=== PATIENT | female | born 1985 | race African-American/Black ===

== ENCOUNTER 2017-08-21 04:17 | Emergency (ER) | payer OTHER ==
[~2017-08-21] VITALS: Ht 170.2 cm; Wt 56.0 kg
[2017-08-21 04:21] VITALS: BP 125/67; PULSE 87; RESP 18; TEMP 99.1; O2SAT 100
[2017-08-21] MEDS ORDERED: BENZOCAINE-MENTHOL (SUGAR FREE) 15 MG-3.6 MG LOZENGE BUCCAL ONE (05:15)
[2017-08-21] MEDS ORDERED: predniSONE 20 MG TAB PO ONE (05:15)
--- NOTE | 2017-08-21 05:31 | PD ---
HPI . ENT complaint Chief Complaint: ENT Complaint Time Seen by Provider: 05:00 Travel History International Travel<30 days: No Contact w/Intl Traveler<30days: No Traveled to known affect area: No History of Present Illness HPI 32-year-old female complains of having sore throat, difficulty swallowing, generalized malaise aches and pains since yesterday. Patient denies any fever chills sweats, has no stridor no drooling. Patient has a hoarse voice [facility] Past Medical History Narrative Medical Past medical history reviewed Asthma: Yes Anxiety: Yes Psychiatric: Yes (PTSD) ?: Not Past Surgical History Other Surgery: Yes (GANGLION CYST REMOVED FROM RIGHT WRIST) Social History Alcohol Use: Yes (OCC) Tobacco Use: No Substance Use: No Allergies-Medications (Allergen,Severity, Reaction): Coded Allergies: No Known Allergies (Unverified , 08/21/17) Narrative Medication Allergies and medications reviewed Review of Systems Except as stated in HPI: all other systems reviewed are Neg General / Constitutional: No: Fever Eyes: No: Visual changes HENT: Positive: Sore Throat, No: Headaches, Neck Stiffness, Neck Pain Cardiovascular: No: Chest Pain or Discomfort Respiratory: No: Shortness of Breath Gastrointestinal: No: Abdominal Pain Genitourinary: No: Dysuria Musculoskeletal: No: Pain Skin: No Rash Neurologic: No: Weakness Psychiatric: No: Depression Endocrine: No: Polydipsia Hematologic/Lymphatic: No: Easy Bruising Physical Exam Narrative GENERAL: Awake alert oriented 3 no acute distress vital signs afebrile normal and stable SKIN: Warm and dry. Color is normal diaphoresis cyanosis or pallor no rashes HEAD: Atraumatic. Normocephalic. EYES: Pupils equal and round. No scleral icterus. No injection or drainage. ENT: No nasal bleeding or discharge. Mucous membranes pink and moist. Mild erythema posterior oropharynx, no significant edema no exudates. Uvula midline. NECK: Trachea midline. No JVD. Full range of motion no stiff neck. No Kernig Brudzinski CARDIOVASCULAR: Regular rate and rhythm. S1-S2 no murmurs rubs gallops RESPIRATORY: No accessory muscle use. Clear to auscultation. Breath sounds equal bilaterally. GASTROINTESTINAL: Abdomen soft, non-tender, nondistended. Hepatic and splenic margins not palpable. MUSCULOSKELETAL: Extremities without clubbing, cyanosis, or edema. No obvious deformities. NEUROLOGICAL: Awake and alert. No obvious cranial nerve deficits. Motor grossly within normal limits. Five out of 5 muscle strength in the arms and legs. Normal speech. PSYCHIATRIC: Appropriate mood and affect; insight and judgment normal. Data Data Last Documented VS Vital Signs Date Time Temp Pulse Resp B/P (MAP) Pulse Ox O2 Delivery O2 Flow Rate FiO2 08/21/17 04:21 99.1 87 18 125/67 (86) 100 Orders Orders Group A Rapid Strep Screen (08/21/17 05:03) Influenzae A/B Antigen (08/21/17 05:03) Benzocain-Menthol (Sugar Free) (Cepacol (08/21/17 05:15) Prednisone (Deltasone) (08/21/17 05:15) Strep Culture (Group A) (08/21/17 05:10) MDM Medical Decision Making Medical Screen Exam Complete: Yes Emergency Medical Condition: Yes Medical Record Reviewed: Yes Differential Diagnosis Influenza, strep, upper respiratory infection Narrative Course Influenza negative, strep negative. Patient improved with medications. This Diagnosis Primary Impression: Pharyngitis Qualified Codes: J02.9 - Acute pharyngitis, unspecified Patient Instructions: General Instructions, Pharyngitis (ED) Additional Instructions: Cepacol lozenges for sore throat. Follow-up with your doctor. Return for worsening Scripts Benzocaine-Menthol Lozenge (Cepacol Sore Throat Lozenge) 15-3.6 Mg Lozg 1 LOZENGE PO Q2H Y for SORE THROAT, #1 CONTAINER 0 Refills Prov: Baljit Heard MD 08/21/17 Disposition: 01 DISCHARGE HOME Condition: Stable Baljit Heard MD Aug 21, 2017 05:31
[2017-08-21] MEDS ORDERED: BENZ1LOZ5 PO (07:31)
== END 2017-08-21 07:44 | disposition home or self-care (01) ==
LOC: NEPE 04:17
DX: J02.9 Acute pharyngitis, unspecified (principal); J45.909 Unspecified asthma, uncomplicated; F43.10 Post-traumatic stress disorder, unspecified; F41.9 Anxiety disorder, unspecified
CPT/HCPCS: 87081; 87804; 87880; 99283; J7512